=== PATIENT | female | born 1980 | race Caucasian/White ===

== ENCOUNTER 2023-09-06 06:05 | Inpatient (IN) | payer BC ==
--- NOTE | 2023-09-06 06:28 | ED ---
Fall HPI <AndreaNas zamora Jo Ann - Last Filed: 09/06/23 08:07> - General Source: patient, RN notes reviewed Mode of arrival: ambulatory Limitations: no limitations - History of Present Illness MD Complaint: fall <Venice Sam - Last Filed: 09/06/23 08:30> - General Chief Complaint: Fall Stated Complaint: left leg injury Time Seen by Provider: 09/06/23 06:20 - History of Present Illness Initial Comments: This is a 43-year-old female who presents emergency department for left leg pain after a fall. States that just prior to arrival she slipped on the ice and fell, injuring her left leg. Pain seems to be in the calf region. She did not hear a pop/snap or any sort of sound, however she is able to feel something moving around inside of her leg. Denies any pain in the foot/ankle or knee. States that it is largely in the calf area. She has some discomfort in the hip as well. She has not tried ambulating since she fell. She did not hit her head. Not taking any blood thinners. (Venice Sam) - Related Data Allergies Allergy/AdvReac Type Severity Reaction Status Date / Time No Known Allergies Allergy Verified 09/06/23 06:19 Review of Systems ROS Other: All systems not noted in ROS Statement are negative. <Nas Gomez Jo Ann - Last Filed: 09/06/23 08:07> ROS Other: All systems not noted in ROS Statement are negative. <Venice Sam - Last Filed: 09/06/23 08:30> ROS Statement: Those systems with pertinent positive or pertinent negative responses have been documented in the HPI. Past Medical History Past Medical History: No Reported History History of Any Multi-Drug Resistant Organisms: Other MDRO Past Surgical History: Section Past Psychological History: No Psychological Hx Reported Smoking Status: Never smoker Past Alcohol Use History: Occasional Past Drug Use History: None Reported <Venice Sam - Last Filed: 09/06/23 08:30> General Exam Limitations: no limitations General appearance: alert, in no apparent distress Head exam: Present: atraumatic, normocephalic, normal inspection Respiratory exam: Present: normal lung sounds bilaterally. Absent: respiratory distress, wheezes, rales, rhonchi, stridor Cardiovascular Exam: Present: regular rate, normal rhythm, normal heart sounds. Absent: systolic murmur, diastolic murmur, rubs, gallop, clicks Extremities exam: Present: other (Visible deformity of the left tib fib with external rotation of the lower extremity. 2+ DP and PT pulses. Full ROM of all 5 digits. ) Neurological exam: Present: alert, oriented X3, CN II-XII intact Psychiatric exam: Present: normal affect, normal mood Skin exam: Present: warm, dry, intact, normal color. Absent: rash <Venice Sam - Last Filed: 09/06/23 08:30> Course Vital Signs 09/06/23 09/06/23 06:15 07:47 Temperature 98.0 F Pulse Rate 74 94 Respiratory 24 17 Rate Blood Pressure 118/80 122/84 O2 Sat by Pulse 100 99 Oximetry Procedures - Orthopedic Fracture Reduction Fracture #1 Consent Obtained: written consent Side: left Fracture Reduction Location: tibia, fibula Analgesia: other (Dilaudid and Toradol) Technique: direct manipulation Post Reduction X-rays Demonstrate: acceptable reduction Post-Reduction Neuro Exam: intact Post-Reduction Vascular Exam: intact Splint Applied: Yes Patient Tolerated Procedure: well <Nas Gomez - Last Filed: 09/06/23 08:07> - Orthopedic Splinting/Casting Injury #1 Side: left Lower Extremity Injury Location: long leg Lower Extremity Immobilizer: posterior splint, stirrup splint, Freddie wrap, fiber glass cast <Venice Sam - Last Filed: 09/06/23 08:30> Medical Decision Making - Lab Data Result diagrams: 09/06/23 07:34 <Nas Gomez - Last Filed: 09/06/23 08:07> - Lab Data Result diagrams: 09/06/23 07:34 09/06/23 07:34 - Radiology Data Radiology results: report reviewed, image reviewed <Venice Sam - Last Filed: 09/06/23 08:30> - Medical Decision Making This is a 43 year old female who presents to the emergency department for left leg pain after a fall. Was pt. sent in by a medical professional or institution? @ -No Did you speak to anyone other than the patient for history? @ -No Did you review nursing and triage notes? @ -Yes, and I agree, it is accurate with regards to the patient's symptoms. Were old charts reviewed? @ -No Differential Diagnosis? @ -Differential Musculoskeletal: Muscular strain, contusion, ligament sprain, fracture, arthritis, septic arthritis, bursitis, cellulitis, muscle spasm, nerve compression, DVT, arterial occlusion, herpes zoster, electrolyte abnormality, tumor.... This is not meant to be in all inclusive list EKG interpreted by me (3pts min.)? @ -EKG interpreted by me demonstrating the following: Sinus rhythm. Ventri cular rate 76 bpm, SC interval 138 ms, QRS duration 86 ms, QTc 414 ms. X-rays interpreted by me (1pt min.)? @ -X-ray of the left tib/fib and hip obtained. My interpretation identifies a distal tibia and proximal fibula fracture. My interpretation of the left hip x- ray identifies no acute fractures and my interpretation of the chest x-ray reveals no localized consolidations or infiltrates. CT interpreted by me (1pt min.)? @ -Not obtained U/S interpreted by me (1pt. min.)? @ -Not obtained What testing was considered but not performed? (CT, X-rays, U/S, labs)? Why? @ -None What meds were considered but not given? Why? @ -None Did you discuss the management of the patient with other professionals? @ -Yes, Dr. Way, orthopedics, who advised reduction with a long-leg splint and a CT scan of the left lower extremity. Will keep patient n.p.o. with tentative plan for OR intervention today. Did you reconcile home meds? @ -No Was smoking cessation discussed for >3mins.? @ -No Was critical care preformed (if so, how long)? @ -No Were there social determinants of health that impacted care today? How? (Homelessness, low income, unemployed, alcoholism, drug addiction, transportation, low edu. Level, literacy, decrease access to med. care, snf, re hab)? @ -No Was there de-escalation of care discussed even if they declined? (Discuss DNR or withdrawal of care, Hospice)? @ -No What co-morbidities impacted this encounter? (DM, HTN, Smoking, COPD, CAD, Cancer, CVA, Hep., AIDS, mental health diagnosis, sleep apnea, morbid obesity)? @ -None Was patient admitted / discharged? @ -Admitted. X-ray of the left tib-fib and hip obtained. This demonstrated an oblique comminuted fracture of the proximal third of the left fibular diaphysis with moderate displacement and an oblique fracture of the distal third of the left tibial diaphysis with marked displacement. X-ray of the left hip reveals no acute process. Case discussed with Dr. Way, orthopedics. She advised that the tentative plan will be to take the patient to the OR for intervention later today. She requested reduction with splint application for the meantime as well as a CT scan of the left lower extremity. Reduction was performed by ED attending, Dr. Gomez followed by posterior stirrup splint application by myself. She was neurovascularly intact before and after reduction and splint application. CT scan of the left lower extremity was obtained. Preoperative lab work, EKG, and chest x-ray were obtained. Chest x-ray reveals no acute process. Lab work demonstrates leukocytosis and was otherwise fairly unremarkable. Patient admitted to orthopedics with medicine listed as consult. Undiagnosed new problem with uncertain prognosis? @ -None Drug Therapy requiring intensive monitoring for toxicity (Heparin, Nitro, Insulin, Cardizem)? @ -None Were any procedures done? @ -Fracture reduction and splint application Diagnosis/symptom? @ -Fall, distal tibia fracture, proximal fibula fracture Acute, or Chronic, or Acute on Chronic? @ -Acute Uncomplicated (without systemic symptoms) or Complicated (systemic symptoms)? @ -Uncomplicated Side effects of treatment? @ -None Exacerbation, Progression, or Severe Exacerbation] @ -Not applicable Poses a threat to life or bodily function? @ -Yes, this will limit her ability to ambulate for the mean time. This case was discussed in detail with the attending ED physician, Dr. Gomez. Presentation, findings, and treatment plan discussed in detail as well. (Venice Sam) - Lab Data Lab Results 09/06/23 09/06/23 09/06/23 Range/Units 07:34 07:34 07:34 WBC 13.4 H (3.8-10.6) k/uL RBC 4.20 (3.80-5.40) m/uL Hgb 13.2 (11.4-16.0) gm/dL Hct 40.5 (34.0-46.0) % MCV 96.6 (80.0-100.0) fL MCH 31.5 (25.0-35.0) pg MCHC 32.6 (31.0-37.0) g/dL RDW 13.3 (11.5-15.5) % Plt Count 354 (150-450) k/uL MPV 7.0 Neutrophils % 83 % Lymphocytes % 10 % Monocytes % 4 % Eosinophils % 1 % Basophils % 1 % Neutrophils # 11.2 H (1.3-7.7) k/uL Lymphocytes # 1.4 (1.0-4.8) k/uL Monocytes # 0.6 (0-1.0) k/uL Eosinophils # 0.2 (0-0.7) k/uL Basophils # 0.1 (0-0.2) k/uL PT 10.3 (10.0-12.5) sec INR 0.9 (<1.2) APTT 22.4 (22.0-30.0) sec Sodium 137 (137-145) mmol/L Potassium 4.6 (3.5-5.1) mmol/L Chloride 107 (98-107) mmol/L Carbon Dioxide 21 L (22-30) mmol/L Anion Gap 9 mmol/L BUN 11 (7-17) mg/dL Creatinine 0.67 (0.52-1.04) mg/dL Est GFR (CKD-EPI)AfAm >90 (>60 ml/min/1.73 sqM) Est GFR (CKD-EPI)NonAf >90 (>60 ml/min/1.73 sqM) Glucose 100 H (74-99) mg/dL Calcium 9.3 (8.4-10.2) mg/dL Total Bilirubin 0.5 (0.2-1.3) mg/dL AST 20 (14-36) U/L ALT 12 (4-34) U/L Alkaline Phosphatase 67 (38-126) U/L Total Protein 7.0 (6.3-8.2) g/dL Albumin 4.5 (3.5-5.0) g/dL Disposition <Nas Gomez - Last Filed: 09/06/23 08:07> Time of Disposition: 07:50 <Venice Sam - Last Filed: 09/06/23 08:30> Clinical Impression: Fall, Fracture of distal end of tibia, Fracture of proximal end of fibula Disposition: ADMITTED IP TO THIS HOSP
[2023-09-06] MEDS: MORPHINE SULFATE 2 MG/ML SYRINGE IM STA (06:46)
[2023-09-06] MEDS: KETOROLAC 15 MG/ML 1 ML VIAL IM STA (06:46)
[2023-09-06] MEDS: HYDROmorphone 1 MG/ML 1 ML SYRINGE IVP STA (07:36)
--- NOTE | 2023-09-06 07:40 | XR ---
Left tibia and fibula. HISTORY: Trauma. COMPARISON: None. TECHNIQUE: 2 views left tibia and fibula were obtained. FINDINGS: There is an oblique comminuted fracture of the proximal third of the left fibular diaphysis with mode rate displacement. There is an oblique fracture of the distal third of the left tibial diaphysis with marked displacemen t. IMPRESSION: Displaced fractures of the tibia and fibula as described above.
--- NOTE | 2023-09-06 07:42 | XR ---
Left hip: HISTORY: Trauma COMPARISON: None. TECHNIQUE: 2 views left hip were obtained. FINDINGS: There is no fracture, dislocation, intraosseous or intra-articular abnormality. There are no soft tis kirsten abnormalities. IMPRESSION: No significant abnormality seen.
[2023-09-06] MEDS ORDERED: NALOXONE 0.4 MG/ML 1 ML VIAL IV PRN (07:51)
[2023-09-06 07:56] LABS: Basophils # (A) 0.1 k/uL (0-0.2); Basophils % (A) 1 %; Eosinophils # (A) 0.2 k/uL (0-0.7); Eosinophils % (A) 1 %; HCT 40.5 % (34.0-46.0); HGB 13.2 gm/dL (11.4-16.0); Lymphocytes # (A) 1.4 k/uL (1.0-4.8); Lymphocytes % (A) 10 %; MCH 31.5 pg (25.0-35.0); MCHC 32.6 g/dL (31.0-37.0); MCV 96.6 fL (80.0-100.0); Monocytes # (A) 0.6 k/uL (0-1.0); Monocytes % (A) 4 %; Neutrophils # (A) 11.2 k/uL (1.3-7.7); Neutrophils % (A) 83 %; Platelet Count 354 k/uL (150-450); RDW 13.3 % (11.5-15.5); WBC 13.4 k/uL (3.8-10.6)
[2023-09-06 08:09] LABS: INR 0.9 (<1.2); Partial Thromboplastin Time 22.4 sec (22.0-30.0); Prothrombin Time 10.3 sec (10.0-12.5)
[2023-09-06 08:11] LABS: Potassium 4.6 mmol/L (3.5-5.1)
[2023-09-06 08:12] LABS: ALT 12 U/L (4-34); AST 20 U/L (14-36); African American GFR (CKD) >90 (>60 ml/min/1.73 sqM); Albumin 4.5 g/dL (3.5-5.0); Alkaline Phosphatase 67 U/L (38-126); Anion Gap 9 mmol/L; Blood Urea Nitrogen 11 mg/dL (7-17); Calcium 9.3 mg/dL (8.4-10.2); Carbon Dioxide 21 mmol/L (22-30); Chloride 107 mmol/L (98-107); Glucose 100 mg/dL (74-99); Non-African American GFR(CKD) >90 (>60 ml/min/1.73 sqM); Sodium 137 mmol/L (137-145); Total Bilirubin 0.5 mg/dL (0.2-1.3)
--- NOTE | 2023-09-06 08:12 | XR ---
EXAMINATION TYPE: XR chest 1V portable DATE OF EXAM: 09/06/2023 COMPARISON: NONE HISTORY: Preop clearance TECHNIQUE: Single frontal view of the chest is obtained. FINDINGS: There is no focal air space opacity, pleural effusion, or pneumothorax seen. The cardiac silhouette size is within normal limits. The osseous structures are intact. IMPRESSION: No acute process.
[2023-09-06] MEDS ORDERED: ACETAMINOPHEN TAB 325 MG TAB PO PRN (08:43)
--- NOTE | 2023-09-06 08:45 | CT ---
EXAMINATION TYPE: CT lower leg LT wo con DATE OF EXAM: 09/06/2023 COMPARISON: None HISTORY: fell on ice, pain, sx planning CT DLP: 173.2 mGycm Automated exposure control for dose reduction was used. FINDINGS: There is a markedly comminuted moderately displaced fracture of the proximal third of the left fibula r diaphysis. There is an oblique moderately displaced fracture of the distal third of the left tibial diaphysis. The soft tissues are unremarkable there is no soft tissue gas or radiopaque foreign body. IMPRESSION: Fractures of the left fibula and tibia as described above. IMPRESSION:
[2023-09-06] MEDS: HYDROmorphone 1 MG/ML 1 ML SYRINGE IVP PRN ×2 (10:11→23:46)
[2023-09-06] MEDS ORDERED: HYDROmorphone 0.5 MG/0.5 ML SYRINGE IVP PRN ×2 (12:09)
[2023-09-06] MEDS ORDERED: TEMAZEPAM 15 MG CAP PO PRN (12:09)
[2023-09-06] MEDS ORDERED: bisacodyL 10 MG SUPP RECTAL PRN (12:09)
[2023-09-06] MEDS ORDERED: NA PHOS,M-B/NA PHOS,DI-BA 133 ML ENEMA RECTAL PRN (12:09)
[2023-09-06] MEDS ORDERED: traMADol 50 MG TAB PO PRN (12:09)
--- NOTE | 2023-09-06 12:09 | P.HPOR ---
History of Present Illness H&P Date: 09/06/23 Chief Complaint: Left Tibia/Fibula Fractures Patient is a pleasant 43-year-old female seen at bedside today in the emergency department. She presented earlier to the emergency department for left leg pain after a fall. She states that just prior to arrival she had slipped on the ice and fell, injuring her left leg. X-ray showed a displaced distal third tibia fracture and proximal fibula fracture of the left lower extremity. She is placed in a splint. Her pain is currently controlled. She denies numbness or tingling. She denies knee or ankle pain. She denies calf pain, fever, chills, chest pain or shortness of breath. She did not hit her head. Not taking any bl ood thinners. She denies other medical problems. Review of Systems All systems: negative Constitutional: Denies chills, Denies fever Eyes: denies blurred vision, denies pain Ears, nose, mouth and throat: Denies headache, Denies sore throat Cardiovascular: Denies chest pain, Denies shortness of breath Respiratory: Denies cough Gastrointestinal: Denies abdominal pain, Denies diarrhea, Denies nausea, Denies vomiting Genitourinary: Denies dysuria, Denies hematuria Musculoskeletal: Denies myalgias Integumentary: Denies pruritus, Denies rash Neurological: Denies numbness, Denies weakness Psychiatric: Denies anxiety, Denies depression Endocrine: Denies fatigue, Denies weight change Past Medical History Past Medical History: No Reported History History of Any Multi-Drug Resistant Organisms: Other MDRO Past Surgical History: Section Past Psychological History: No Psychological Hx Reported Smoking Status: Never smoker Past Alcohol Use History: Occasional Past Drug Use History: None Reported Medications and Allergies Home Medications Medication Instructions Recorded Confirmed Type No Known Home Medications 09/06/23 09/06/23 History Allergies Allergy/AdvReac Type Severity Reaction Status Date / Time No Known Allergies Allergy Verified 09/06/23 10:52 Physical Examination Inspection of the left lower extremity shows a well-padded splint in place. All toes are visible. She has less than 2-second capillary refill in all digits. She is able to wiggle all toes. She has sensation to touch in all toes. The knee and hip appears benign. Results X-rays of the left lower leg shows a displaced distal third tibia fracture and proximal left fibula fracture - Labs Labs: Abnormal Lab Results - Last 24 Hours (Table) 09/06/23 09/06/23 Range/Units 07:34 07:34 WBC 13.4 H (3.8-10.6) k/uL Neutrophils # 11.2 H (1.3-7.7) k/uL Carbon Dioxide 21 L (22-30) mmol/L Glucose 100 H (74-99) mg/dL H & H 09/06/23 Range/Units 07:34 Hgb 13.2 (11.4-16.0) gm/dL Hct 40.5 (34.0-46.0) % Coagulation 09/06/23 Range/Units 07:34 INR 0.9 (<1.2) Result Diagrams: 09/06/23 07:34 09/06/23 07:34 Assessment and Plan (1) Fracture of distal end of tibia Narrative/Plan: Patient has been reviewed by Dr. Way. Plan is to proceed with surgical intervention today, September 06, 2023, including IM dayron of the left tibia, Possible open reduction internal fixation of the distal tibia fracture. The possible risks, complications as well as the benefits have been reviewed with the patient. She desires to proceed. She has been NPO. She will resume routine postoperative orthopedic protocol postoperatively. Current Visit: Yes Status: Acute Priority: Medium Code(s): S82.309A - UNSP FRACTURE OF LOWER END OF UNSP TIBIA, INIT FOR CLOS FX SNOMED Code(s): 0044691 06 (2) Fracture of proximal end of fibula Current Visit: Yes Status: Acute Priority: Medium Code(s): S82.839A - OTH FRACTURE OF UPPER AND LOWER END OF UNSP FIBULA, INIT SNOMED Code(s): 43527299 Time with Patient: Greater than 30
[2023-09-06] MEDS: diazePAM 5 MG TAB PO PRN (12:55)
[2023-09-06] MEDS: ONDANSETRON 4 MG/2 ML VIAL IVP PRN (12:55)
[2023-09-06] MEDS: HYDROcodone/APAP 7.5-325MG 1 EACH TAB PO PRN ×2 (12:55→17:49)
[2023-09-06] MEDS: LACTATED RINGERS 1,000 ML IV SCH (15:01)
--- NOTE | 2023-09-06 16:00 | P.CONS ---
History of Present Illness - Reason for Consult Consult date: 09/06/23 - History of Present Illness Patient is a 43-year-old female with no significant past medical history presenting after fall, injuring her left leg. On arrival, x-ray showed displaced distal third tibia fracture and proximal fibular fracture of the left lower extremity. [facility] has been consulted for medical management and perioperative evaluation.In the ED, temperature was 97.6, pulse 74, respiratory 24, blood pressure 118/80, saturating at 100% on room air. WBC 13.4, hemoglobin 13.2, INR 0.9, creatinine 0.67. EKG independently interpreted, shows sinus rhythm. Chest x-ray independently interpreted, shows no acute process. Left lower extremity CT shows fractures of the left fibula and tibia. Patient will likely be getting surgical intervention tomorrow. Pertinent positives and negatives as discussed in HPI, a complete review of systems was performed and all other systems are negative. Patient seen and examined at bedside. Vital signs reviewed General: nontoxic, no distress, appears at stated age Derm: warm, dry Head: atraumatic, normocephalic, symmetric Eyes: EOMI, no lid lag, anicteric sclera, pupils equal round reactive to light ENT: Nose and ears atraumatic Neck: No thyromegaly, supple Mouth: no lip lesion, mucus membranes moist Cardiovascular: S1S2 reg, no murmur, no edema Lungs: clear to auscultation bilateral, no rhonchi, no rales, no wheeze, no accessory muscle use Abdominal: soft, nontender to palpation, no guarding, no appreciable organomegaly Ext: no gross muscle atrophy, muscle strength muscle strength 5 out of 5 in all 4 extremities, no contractures Neuro: CN II-XII grossly intact Psych: Alert, oriented, appropriate affect Assessment/Plan: Active: Mechanical fall Displaced tibial and fibular fracture of left lower extremity Leukocytosis, reactive Perioperative evaluation Pain control with oral Tylenol as needed, oral [place] as needed, IV Dilaudid as needed, tramadol as needed, monitor for sedation Diazepam oral as needed for muscle spasms, monitor for sedation Senna scheduled, rectal bisacodyl as needed for bowel regimen Repeat CBC and BMP tomorrow Keep patient n.p.o. after midnight, no absolute contraindications for surgical intervention tomorrow Thank you for allowing us to participate in the care of this pleasant patient. Do not hesitate to contact us with questions. Someone can be reached from the [facility] hospitalist group all hours of the day at [phone] or via C[employer] u. Past Medical History Past Medical History: No Reported History History of Any Multi-Drug Resistant Organisms: Other MDRO Past Surgical History: Section Past Psychological History: No Psychological Hx Reported Smoking Status: Never smoker Past Alcohol Use History: Occasional Past Drug Use History: None Reported Medications and Allergies Home Medications Medication Instructions Recorded Confirmed Type No Known Home Medications 09/06/23 09/06/23 History Allergies Allergy/AdvReac Type Severity Reaction Status Date / Time No Known Allergies Allergy Verified 09/06/23 10:52 Physical Exam Vitals: Vital Signs Temp Pulse Pulse Resp BP BP Pulse Ox 09/06/23 14:00 97.6 F 79 18 121/78 98 09/06/23 13:30 89 18 129/80 100 09/06/23 13:00 114/74 100 09/06/23 12:30 125/80 100 09/06/23 12:00 104/63 100 09/06/23 11:30 104/66 97 09/06/23 11:00 106/66 95 09/06/23 10:30 87 17 114/70 97 09/06/23 10:16 114/70 99 09/06/23 07:47 94 17 122/84 99 09/06/23 06:15 98.0 F 74 24 118/80 100 Intake and Output 09/06/23 09/06/23 09/06/23 06:59 14:59 22:59 Other: Weight 61.235 kg 61.235 kg Results CBC & Chem 7: 09/06/23 07:34 09/06/23 07:34 Labs: Abnormal Lab Results - Last 24 Hours (Table) 09/06/23 09/06/23 Range/Units 07:34 07:34 WBC 13.4 H (3.8-10.6) k/uL Neutrophils # 11.2 H (1.3-7.7) k/uL Carbon Dioxide 21 L (22-30) mmol/L Glucose 100 H (74-99) mg/dL
[2023-09-06] MEDS: HYDROmorphone 0.5 MG/0.5 ML SYRINGE IVP PRN (16:59)
[2023-09-06] MEDS: ASPIRIN 81 MG PO SCH (20:54)
[2023-09-06] MEDS: SENNOSIDES-DOCUSATE SODIUM 1 EACH TAB PO SCH (21:06)
[2023-09-07 10:06] LABS: Basophils # (A) 0.07 X 10*3/uL (0.00-0.10); Basophils % (A) 0.8 %; Eosinophils # (A) 0.18 X 10*3/uL (0.04-0.35); HCT 33.1 % (37.2-46.3); HGB 10.8 g/dL (12.0-15.0); Lymphocytes # (A) 2.33 X 10*3/uL (0.90-5.00); Lymphocytes % (A) 25.8 %; MCH 30.9 pg (27.0-32.0); MCHC 32.6 g/dL (32.0-37.0); MCV 94.8 FL (80.0-97.0); Mean Platelet Volume 9.3 FL (9.5-12.2); Monocytes # (A) 0.94 X 10*3/uL (0.20-1.00); Monocytes % (A) 10.4 %; NRBC Per 100 WBC 0 X 10*3/uL (0.00-0.01); Neutrophils # (A) 5.47 X 10*3/uL (1.80-7.70); Neutrophils % (A) 60.7 %; Platelet Count 306 X 10*3/uL (140-440); RBC 3.49 X 10*6/uL (4.10-5.20); RDW 13.7 % (11.5-14.5); WBC 9.02 X 10*3/uL (4.50-10.00)
[2023-09-07] MEDS ORDERED: KETOROLAC 15 MG/ML 1 ML VIAL ONE (10:31)
[2023-09-07] MEDS ORDERED: LIDOCAINE 1% INJ 10MG/ML (20 ML MDV) ONE (10:31)
[2023-09-07] MEDS ORDERED: HYDROmorphone (PF) 1 MG/ML ONE (10:31)
[2023-09-07] MEDS ORDERED: PHENYLEPHRINE-0.9% NACL SYG 1,000 MCG/10 ML SYRINGE ONE (10:31)
[2023-09-07] MEDS ORDERED: MIDAZOLAM 2 MG/2 ML VIAL ONE (10:31)
[2023-09-07] MEDS ORDERED: DEXAMETHASONE SOD PHOSPHATE 4 MG/ML 1 ML VIAL ONE (10:31)
[2023-09-07] MEDS ORDERED: PROPOFOL 10 MG/ML 20 ML VIAL IV ONE (10:31)
[2023-09-07] MEDS ORDERED: ONDANSETRON 4 MG/2 ML VIAL ONE (10:31)
[2023-09-07] MEDS ORDERED: fentaNYL (PF) 50 MCG/ML 2 ML AMP ONE (10:31)
[2023-09-07] MEDS: LACTATED RINGERS 1,000 ML IV ONE ×3 (10:36→14:03)
[2023-09-07] MEDS: ceFAZolin 1,000 MG in SODIUM CHLORIDE 0.9% 1,000 ML IRRIGATION ONE (11:18)
--- NOTE | 2023-09-07 11:49 | P.PN ---
Subjective Progress Note Date: 09/07/23 Subjective: Patient seen and examined at bedside. No acute events overnight. Did have urinary retention, Schaeffer catheter in place. Pertinent positives and negatives as discussed above, a complete review of systems was performed and all other systems are negative. Vitals Signs Reviewed. General: Nontoxic, no distress, appears at stated age Derm: Warm, dry, dressing clean, dry, intact Head: Atraumatic, normocephalic, symmetric Eyes: EOMI, no lid lag, anicteric sclera Mouth: No lip lesion, mucus membranes moist Cardiovascular: S1S2 reg, no murmur Lungs: CTA bilateral, no rhonchi, no rales, no accessory muscle use Abdominal: Soft, nontender to palpation, no guarding, no appreciable o rganomegaly Ext: No gross muscle atrophy, no edema, no contractures Neuro: CN II-XI grossly intact, no focal neuro deficits Psych: Alert, oriented, appropriate affect Data Reviewed Today: Pertinent Labs: WBC 9.02, hemoglobin 10.8 Imaging: No new imaging Assessment and Plan: Mechanical fall Displaced tibial and fibular fracture of left lower extremity Leukocytosis, reactive, resolved Mild normocytic anemia, likely hemodilution Pain control with oral Tylenol as needed, oral [place] as needed, IV Dilaudid as needed, tramadol as needed, monitor for sedation Diazepam oral as needed for muscle spasms, monitor for sedation Senna scheduled, rectal bisacodyl as needed for bowel regimen Pending surgical intervention today Urinary retention, acute, status post Schaeffer catheter placement Consider voiding trial after surgery Thank you for allowing us to participate in the care of this pleasant patient. Do not hesitate to contact us with questions. Someone can be reached from the [facility] hospitalist group all hours of the day at [phone] or via perfect serve. Anticipated discharge time: Objective - Vital Signs Vital signs: Vital Signs Temp 98.0 F 09/07/23 07:00 Pulse 101 H 09/07/23 07:00 Resp 17 09/07/23 07:00 BP 104/58 09/07/23 07:00 Pulse Ox 99 09/07/23 07:00 FiO2 Intake & Output 09/06/23 09/07/23 09/07/23 18:59 06:59 18:59 Intake Total 551 Output Total 800 1000 Balance -800 -1000 551 Weight 61.235 kg Intake: IV 551 Output: Urine 800 1000 Straight 400 Uretheral (Schaeffer) 1000 - Labs CBC & Chem 7: 09/07/23 05:11 09/06/23 07:34 Labs: Abnormal Lab Results - Last 24 Hours (Table) 09/07/23 Range/Units 05:11 RBC 3.49 L (4.10-5.20) X 10*6/uL Hgb 10.8 L (12.0-15.0) g/dL Hct 33.1 L (37.2-46.3) % MPV 9.3 L (9.5-12.2) FL
[2023-09-07] MEDS: MULTIVITAMINS, THERA 1 EACH TAB PO SCH (12:28)
--- NOTE | 2023-09-07 12:45 | XR ---
Left tibia-fibula. HISTORY: Fixation of left proximal fibular fracture and distal left tibial fracture. COMPARISON: 02/06/2024. TECHNIQUE AND FINDINGS: 8 fluoroscopic spot films in 2 minutes and 29 seconds fluoroscopy demonstrati ng open reduction internal fixation of the proximal fibular fracture and distal tibial fracture. Ther e is an intramedullary dayron with screws within the tibia for tibial fracture fixation. There is near a natomic alignment of the tibia.
[2023-09-07] MEDS: HYDROmorphone 0.5 MG/0.5 ML SYRINGE IVP ONE ×3 (13:12→13:33)
--- NOTE | 2023-09-07 14:31 | XR ---
EXAMINATION TYPE: XR tibia fibula LT DATE OF EXAM: 09/07/2023 2:25 PM CLINICAL INDICATION:Female, 43 years old with history of post op; H COMPARISON: Radiographs 09/06/2023 TECHNIQUE: The left tibia/fibula was examined in AP and lateral projections. FINDINGS: Interval placement of orthopedic fixation dayron with intact hardware and screws involving the tibia. There is improved alignment of the tibial fracture fragment. Redemonstration of comminuted proximal fibular metadiaphyseal fracture with improved foreshortening. Soft tissue edema surrounding the lower leg. IMPRESSION: 1. Interval fixation of tibial fracture with intact hardware. 2. Persistent comminuted left fibular fracture with improved alignment.
--- NOTE | 2023-09-07 15:13 | P.OP ---
Date of Procedure: 09/07/23 Preoperative Diagnosis: left tibial shaft and proximal fibula fracture Postoperative Diagnosis: same Procedure(s) Performed: Left tibial intramedullary nail Implants: fredy 315mm x 9mm tibial nail, two proximal and two distal locking screws Anesthesia: MARLO Surgeon: Demi Way Wheel And Pinion Inspector #1: Michael Jean Estimated Blood Loss (ml): 20 Condition: stable Disposition: PACU Indications for Procedure: Patient slipped and fell on ice yesterday while packing up the car for a [place] vacation. She sustained a distal third tibial shaft and proximal fibula fracture. This was reduced and splinted in the ER. CT does not show any intraarticular extension. She is in agreement with proceeding with an IMN of the tibia. Operative Findings: spiral distal third tibial shaft fracture Description of Procedure: The patient, operative extremtiy, and procedure were identified in the preop holding area. She was then brought back to the OR. Once anesthesia was administered, she was moved to the operating table and the lower extremity was prepped and draped in normal sterile fashion with a tourniquet. Once a formal timeout was performed, the tourniquet was inflated. Reduction was performed. Two small incisions were made to introduce a large clamp to hold the reduction. This was unsuccessful and the clamp was removed. A longitudinal incision was made along the lateral side of the patella. A longitudinal split was made in the retinaculum and the patella was shifted medially. The guide wire was inserted lateral to the patella, outside of the joint capsule to the starting point, in line with the medial aspect of the lateral tibial spine and just anterior to the joint line. Placement was confirmed on orthogonal views. The wire was advanced and followed with a cannulated opening reamer. A small bend was made to the tip of the ball tip guidewire. This was then inserted in an anterograde fashion. With the fracture reduced, the wire was advanced across the fracture site and into the physis. The measuring device indicated that a 315mm nail would be appropriate. Serial reamers were then utilized. There was good chatter in the isthmus at 9mm but the diameter of the reamers were increased until 10.5mm. The ithmus was reamed with care taken to avoid reaming the fracture area. The nail was then inserted over the guidewire and advanced so that the proximal aspect of the nail was just buried. The fracture and hardware placement were confirmed on fluoro. The guidewire was removed. The medial to lateral holes of the proximal nail were then filled with 5.0 screws. Final adjustments to the reduction was performed and two distal medial to lateral holes of the distal nail were filled with 5.0 screws using perfect [place] technique. Final fluoro images showed good reduction and hardware placement and the insertion instruments were removed. All wounds were irrigated with normal saline. Attention was then turned to the knee. The extensor retinaculum was repaired wi th 0 vycril. The tourniquet was let down and hemostasis achieved. The remainder of the wounds were closed in a layered fashion with 3.0 vycril and 4.0 monocryl, skin glue, and steristrips. Wounds were dressed with adaptic and the extremity was placed in a well padded posterior splint. Patient was aroused by the anesthesia team and brought back to PACU in stable condition.
[2023-09-08] MEDS: MAGNESIUM HYDROXIDE 2,400 MG/30 ML CUP PO PRN (10:02)
--- NOTE | 2023-09-08 11:32 | P.PN ---
Subjective Progress Note Date: 09/08/23 Principal diagnosis: Left tib-fib fracture. Status post IM nail left tibia. Patient slipped and fell on ice yesterday while packing up the car for a [place] vacation. She sustained a distal third tibial shaft and proximal fibula fracture without intraarticular extension. 09/08/2023: Patient is postop day #1 status post intramedullary nailing of the left tibia. She has complaint of pain and swelling to the lower leg. Otherwise no new complaints or concerns today. Vital signs are stable. Objective - Vital Signs Vital signs: Vital Signs Temp 98.9 F 09/08/23 07:04 Pulse 79 09/08/23 07:04 Resp 17 09/08/23 07:04 BP 103/65 09/08/23 07:04 Pulse Ox 100 09/08/23 07:04 FiO2 Intake & Output 09/07/23 09/08/23 09/08/23 18:59 06:59 18:59 Intake Total 1551 Output Total 4470 2900 2125 Balance -2919 -2900 -2125 Intake: IV 1551 Output: Urine 4450 2900 2125 Uretheral (Schaeffer) 600 Estimated Blood Loss 20 Other: Voiding Method Indwelling Catheter # Voids 1 - Exam This is a pleasant 43-year-old female in no acute distress. Her is present at bedside. She is alert and oriented x 3. Exam of the left lower extremity reveals that her dressing and splint are intact. She has full toe motion without difficulty or pain. Neurovascular status to the lower extremity is grossly intact. - Labs CBC & Chem 7: 09/07/23 05:11 09/06/23 07:34 Assessment and Plan (1) Fall Current Visit: Yes Status: Acute Code(s): W19.XXXA - UNSPECIFIED FALL, INITIAL ENCOUNTER SNOMED Code(s): 8756930 (2) Fracture of distal end of tibia Current Visit: Yes Status: Acute Priority: Medium Code(s): S82.309A - UNSP FRACTURE OF LOWER END OF UNSP TIBIA, INIT FOR CLOS FX SNOMED Code(s): 347332219 (3) Fracture of proximal end of fibula Current Visit: Yes Status: Acute Priority: Medium Code(s): S82.839A - OTH FRACTURE OF UPPER AND LOWER END OF UNSP FIBULA, INIT SNOMED Code(s): 91598073 Plan: The clinical findings are discussed with the patient. Will continue inpatient care. The patient is to work with physical therapy today. Will plan discharge home possibly tomorrow. Patient is doing well with pain controlled. She will be nonweightbearing for the first two weeks and we will hopefully progress her once we see her in the office and switch her to a boot. She had good fracture fixation with the hardware placed yesterday.
--- NOTE | 2023-09-08 13:32 | P.PN ---
Subjective Progress Note Date: 09/08/23 Subjective: Patient seen and examined at bedside. No acute events overnight. Has a Schaeffer catheter in place Pertinent positives and negatives as discussed above, a complete review of systems was performed and all other systems are negative. Vitals Signs Reviewed. General: Nontoxic, no distress, appears at stated age Derm: Warm, dry, dressing clean, dry, intact Head: Atraumatic, normocephalic, symmetric Eyes: EOMI, no lid lag, anicteric sclera Mouth: No lip lesion, mucus membranes moist Cardiovascular: S1S2 reg, no murmur Lungs: CTA bilateral, no rhonchi, no rales, no accessory muscle use Abdominal: Soft, nontender to palpation, no guarding, no appreciable organomegaly Ext: No gross muscle atrophy, no edema, no contractures Neuro: CN II-XI grossly intact, no focal neuro deficits Psych: Alert, oriented, appropriate affect Data Reviewed Today: Pertinent Labs: No new labs Imaging: No new imaging Assessment and Plan: Mechanical fall Displaced tibial and fibular fracture of left lower extremity status post surgery Leukocytosis, reactive, resolved Mild normocytic anemia, likely hemodilution - Pain control with oral Tylenol as needed, oral [place] as needed, IV Dilaudid as needed, tramadol as needed, monitor for sedation - Diazepam oral as needed for muscle spasms, monitor for sedation - Senna scheduled, rectal bisacodyl as needed for bowel regimen -Aspirin 81 twice daily for DVT prophylaxis - CBC for tomorrow Urinary retention, acute, status post Schaeffer catheter placement -Likely to consider voiding trial today once patient is able to ambulate Patient is otherwise medically optimized for discharge Thank you for allowing us to participate in the care of this pleasant patient. Do not hesitate to contact us with questions. Someone can be reached from the [facility] hospitalist group all hours of the day at [phone] or via [employer]. Objective - Vital Signs Vital signs: Vital Signs Temp 98.9 F 09/08/23 07:04 Pulse 79 09/08/23 07:04 Resp 17 09/08/23 07:04 BP 103/65 09/08/23 07:04 Pulse Ox 100 09/08/23 07:04 FiO2 Intake & Output 09/07/23 09/08/23 09/08/23 18:59 06:59 18:59 Intake Total 1551 Output Total 4470 2900 2125 Balance -2918 -2899 -2124 Intake: IV 1551 Output: Urine 4450 2900 2125 Uretheral (Schaeffer) 600 Estimated Blood Loss 20 Other: Voiding Method Indwelling Catheter # Voids 1 - Labs CBC & Chem 7: 09/07/23 05:11 09/06/23 07:34
[2023-09-09 08:45] VITALS: RESP 18
[2023-09-09 12:07] LABS: Basophils # (A) 0.05 X 10*3/uL (0.00-0.10); Basophils % (A) 0.5 %; Eosinophils # (A) 0.19 X 10*3/uL (0.04-0.35); HCT 29.6 % (37.2-46.3); HGB 9.1 g/dL (12.0-15.0); Lymphocytes # (A) 2.29 X 10*3/uL (0.90-5.00); Lymphocytes % (A) 24.4 %; MCHC 30.7 g/dL (32.0-37.0); MCV 97.7 FL (80.0-97.0); Mean Platelet Volume 9.7 FL (9.5-12.2); Monocytes # (A) 0.76 X 10*3/uL (0.20-1.00); Monocytes % (A) 8.1 %; NRBC Per 100 WBC 0 X 10*3/uL (0.00-0.01); Neutrophils # (A) 6.07 X 10*3/uL (1.80-7.70); Neutrophils % (A) 64.7 %; Platelet Count 266 X 10*3/uL (140-440); RBC 3.03 X 10*6/uL (4.10-5.20); RDW 13.8 % (11.5-14.5); WBC 9.39 X 10*3/uL (4.50-10.00)
--- NOTE | 2023-09-09 12:13 | P.DS ---
Providers Date of admission: 09/06/23 07:46 Expected date of discharge: 09/09/23 Attending physician: Demi Way DO Consults: 09/06/23 07:51 Consult Physician Urgent Consulting Provider: Jarred Savage Consult Reason/Comments: Medical management, surgical clearance Do you want consulting provider notified?: Yes Primary care physician: Cathy Oh - Discharge Diagnosis(es) (1) Fall Current Visit: Yes Status: Acute (2) Fracture of distal end of tibia Current Visit: Yes Status: Acute Priority: Medium (3) Fracture of proximal end of fibula Current Visit: Yes Status: Acute Priority: Medium Hospital Course: This is a 43-year-old female who was admitted to [facility] on 09/06/2023 after a fall. Patient was evaluated in the emergency room where x-rays revealed left tibial shaft and proximal fibula fractures. After discussion and consideration with Dr Way, patient consents to proceed with insertion of a left tibial intramedullary nail. Insertion of left tibial intramedullary nail was performed on 09/07/2023. Procedure is performed without complication or sequelae. Patient is doing well postoperatively. Labs and vital signs are stable on day of discharge. On day of discharge the patient's splint is clean, dry and intact. Capillary refill is normal at less than 2 seconds. Left lower extremity is warm and well- perfused. Neurovascular status and circulatory status are intact. Patient is discharged home in good condition. Please see med rec for an accurate list of home medications. Plan - Discharge Summary Discharge Rx Participant: Yes New Discharge Prescriptions: New Cyclobenzaprine [Flexeril] 10 mg PO TID 7 Days #21 tab Sennosides [Senokot] 2 tab PO DAILY PRN #60 tablet PRN Reason: Constipation Ondansetron Odt [Zofran Odt] 1 tab PO Q8HR PRN #10 tab PRN Reason: Nausea Aspirin [Adult Low Dose Aspirin EC] 81 mg PO BID 30 Days #60 tab HYDROcodone/APAP 7.5-325MG [[place] 7.5-325] 1 - 2 tab PO Q6H PRN #32 tab PRN Reason: Pain Discharge Medication List Aspirin [Adult Low Dose Aspirin EC] 81 mg PO BID 30 Days #60 tab 09/09/23 [Rx] Cyclobenzaprine [Flexeril] 10 mg PO TID 7 Days #21 tab 09/09/23 [Rx] HYDROcodone/APAP 7.5-325MG [[place] 7.5-325] 1 - 2 tab PO Q6H PRN #32 tab 09/09/23 [Rx] Ondansetron Odt [Zofran Odt] 1 tab PO Q8HR PRN #10 tab 09/09/23 [Rx] Sennosides [Senokot] 2 tab PO DAILY PRN #60 tablet 09/09/23 [Rx] Follow up Appointment(s)/Referral(s): Demi Way DO [Doctor of Osteopathic Medicine] - 10 Days Cathy Euceda NPC [STAFF PHYSICIAN] - 1-2 days Activity/Diet/Wound Care/Special Instructions: non weight bearing keep splint clean and dry take meds as directed elevate lower extremity f/u with [facility] and call with any questions or concerns, . Patient requires a wheelchair to complete her ADLS which cannot be done with a walker or cane due to left ankle fracture and nonweightbearing status. Patient is able to self propel. Discharge Disposition: HOME SELF-CARE
--- NOTE | 2023-09-09 13:16 | P.PN ---
Subjective Progress Note Date: 09/09/23 Subjective: Patient seen and examined at bedside. No acute events overnight. Schaeffer catheter discontinued. Pertinent positives and negatives as discussed above, a complete review of systems was performed and all other systems are negative. Vitals Signs Reviewed. General: Nontoxic, no distress, appears at stated age Derm: Warm, dry, dressing clean, dry, intact Head: Atraumatic, normocephalic, symmetric Eyes: EOMI, no lid lag, anicteric sclera Mouth: No lip lesion, mucus membranes moist Cardiovascular: S1S2 reg, no murmur Lungs: CTA bilateral, no rhonchi, no rales, no accessory muscle use Abdominal: Soft, nontender to palpation, no guarding, no appreciable organomegaly Ext: No gross muscle atrophy, no edema, no contractures Neuro: CN II-XI grossly intact, no focal neuro deficits Psych: Alert, oriented, appropriate affect Data Reviewed Today: Pertinent Labs: Hemoglobin 9.1 Imaging: No new imaging Assessment and Plan: Mechanical fall Displaced tibial and fibular fracture of left lower extremity status post surgery Leukocytosis, reactive, resolved Mild normocytic anemia, likely secondary to hemodilution and acute blood loss anemia in the setting of recent surgery, anticipated outcome of surgery - Pain control with oral Tylenol as needed, oral [place] as needed, IV Dilaudid as needed, tramadol as needed, monitor for sedation - Diazepam oral as needed for muscle spasms, monitor for sedation - Senna scheduled, rectal bisacodyl as needed for bowel regimen -Aspirin 81 twice daily for DVT prophylaxis Acute urinary retention, resolved Patient is otherwise medically optimized for discharge Thank you for allowing us to participate in the care of this pleasant patient. Do not hesitate to contact us with questions. Someone can be reached from the [facility] hospitalist group all hours of the day at [phone] or via perfect serve. Objective - Vital Signs Vital signs: Vital Signs Temp 99.9 F H 09/09/23 07:45 Pulse 98 09/09/23 06:53 Resp 18 09/09/23 06:53 BP 112/75 09/09/23 06:53 Pulse Ox 94 L 09/09/23 06:53 FiO2 Intake & Output 09/08/23 09/09/23 09/09/23 18:59 06:59 18:59 Output Total 5 Balance -2124 Output: Urine 2125 Uretheral (Schaeffer) 600 Other: Voiding Method Bedside Commode # Voids 6 3 1 - Labs CBC & Chem 7: 09/09/23 06:08 09/06/23 07:34 Labs: Abnormal Lab Results - Last 24 Hours (Table) 09/09/23 Range/Units 06:08 RBC 3.03 L (4.10-5.20) X 10*6/uL Hgb 9.1 L (12.0-15.0) g/dL Hct 29.6 L (37.2-46.3) % MCV 97.7 H (80.0-97.0) FL MCHC 30.7 L (32.0-37.0) g/dL
[2023-09-09 13:41] VITALS: BP 113/69; PULSE 95; TEMP 98
== END 2023-09-09 13:58 | disposition home or self-care (01) | DRG 493 ==
LOC: EC 06:05 → 4SSUR 07:46
PROVIDERS: ADMIT Orthopaedic Surgery Hand Surgery; ATTEND Orthopaedic Surgery Hand Surgery
PROC: 0QSH36Z Reposition Left Tibia with Intramedullary Internal Fixation Device, Percutaneous Approach (ICD-10-PCS; principal; 2023-09-07 07:25)
DX: S82.832A Other fracture of upper and lower end of left fibula, initial encounter for closed fracture (principal); D62 Acute posthemorrhagic anemia; S82.402A Unspecified fracture of shaft of left fibula, initial encounter for closed fracture; W00.0XXA Fall on same level due to ice and snow, initial encounter; Z28.310 Unvaccinated for COVID-19; R33.9 Retention of urine, unspecified
CPT/HCPCS: 27752; 36415; 71045; 73502; 80053; 84703; 85025; 85610; 85730; 86850; 86900; 86901; 93005; 96374; 96375; 99285